=== PATIENT | male | born 1970 | race Caucasian/White ===

== ENCOUNTER 2017-03-27 13:51 | Emergency (ER) | payer OTHER ==
[~2017-03-27] VITALS: Ht 175.3 cm; Wt 68.0 kg
--- NOTE | ~2017-03-27 | EKG ---
PATIENT: JOSEFINA MOREL UNIT #: [id number] Ventricular Rate: 100 BPM Atrial Rate: 100 BPM P-R Interval: 130 ms QRS Duration: 74 ms Q-T Interval: 342 ms QTC Calculation(Bezet): 441 ms P Grants: 77 degrees Calculated R Grants: 91 degrees Calculated T Grants: 71 degrees Diagnosis Line: Normal sinus rhythm Diagnosis Line: Rightward axis Diagnosis Line: Otherwise normal ECG Diagnosis Line: No previous ECGs available Diagnosis Line: Confirmed by EROS YOON MD ([id number]) on 03/28/2017 Diagnosis Line: 7:34:45 PM INTERPRETING MD: CAR MICHAUD
--- NOTE | ~2017-03-27 | CR72 ---
[facility]. [facility] A Service of [facility] RADIOLOGY TEXT RESULTS PATIENT: JOSEFINA MOREL LOCATION: SED : 70 UNIT #: [id number] AGE: [address]: Ancelmo Henderson MD SEX: M ORDER DR: [id number] [place] [id number] E MR#: [id number] Acc #: [id number] NAME: JOSEFINA MOREL : 1970 SEX: M STUDY DATE/TIME: 03/27/2017 15:03 UNIT: SED ROOM: STUDY DESCRIPTION: CR Chest Single View Portable Attending Physician: Ancelmo Henderson M.D. Ordering Physician: Ancelmo Henderson M.D. Primary Care Physician: No Primary Care Physician MEDICAL IMAGING REPORT This report is preliminary unless electronic signature is present. EXAM Portable chest HISTORY Shortness of breath, cough and congestion for the past 2-3 months recently worsening. TECHNIQUE Single AP view of the chest was obtained. FINDINGS A single AP portable view of the chest shows both lungs to be clear. The heart is normal in size. The mediastinal contour is normal. No significant bone abnormalities are seen. IMPRESSION Normal portable chest. Dictated by... Chris Camacho M.D. THIS IS AN ELECTRONICALLY VERIFIED REPORT Chris Camacho M.D. at 03/30/2017 7:03 AM MARCEL/jae TD: 03/28/2017 03:54 JOB #: [id number] MEDICAL IMAGING REPORT Page 1 of 1
[2017-03-27 15:05] LABS: BASOPHIL# 0.1 X10e3 (0-0.3); BASOPHIL% 0.6 % (0-2.5); EOSINOPHIL% 0.5 % (0.0-7.0); HEMATOCRIT 49.9 % (38.0-50.0); HEMOGLOBIN 17.1 gm/dL (13.0-16.0); LYMPHOCYTE# 2.2 X10e3 (1.0-3.5); LYMPHOCYTE% 21.1 % (17.0-45.0); MEAN CELL VOLUME 92.9 FL (83-96); MEAN CORPUSCULAR HEMOGLOBIN 31.9 PG (28-34); MEAN CORPUSCULAR HGB CONC 34.4 g/dL (30-36); MEAN PLATELET VOLUME 7.5 FL (6.5-11.5); MONOCYTE# 0.6 X10e3 (0-1.0); MONOCYTE% 5.7 % (3.0-12.0); NEUTROPHIL# 7.4 X10e3 (1.5-7.1); NEUTROPHIL% 72.1 % (40-75); PLATELET COUNT 219 X10e3 (140-420); RED BLOOD COUNT 5.37 X10e (3.90-5.60); RED CELL DISTRIBUTION WIDTH 13.9 % (11.0-15.5); WHITE BLOOD COUNT 10.2 X10e3 (4.0-10.5)
[2017-03-27 15:05] LABS: POC - CKMB <1.0 ng/mL (0.0-7.9); POC - MYOGLOBIN 62.6 ng/mL (0.0-169.0)
[2017-03-27 15:06] LABS: POC - TROPONIN <0.05 ng/mL (<=0.05)
[2017-03-27 15:08] LABS: DIFF IND NO
[2017-03-27 15:23] LABS: ALBUMIN SERUM 3.9 g/dL (3.5-5.0); BILIRUBIN, DIRECT 0.1 mg/dL (0.0-0.2); BILIRUBIN,INDIRECT 0.2 mg/dL (0.0-0.9); BILIRUBIN,TOTAL 0.3 mg/dL (0.2-2.0); CALCIUM SERUM 8.5 mg/dL (8.4-10.2); CREATININE SERUM 0.9 mg/dL (0.6-1.4); GLOM FILT RATE Estimated 102.1 mL/min (>60); PROTEIN TOTAL SERUM 6.6 g/dL (6.0-8.3)
[2017-03-27 16:17] LABS: POC - CKMB <1.0 ng/mL (0.0-7.9); POC - MYOGLOBIN 41.2 ng/mL (0.0-169.0); POC - TROPONIN <0.05 ng/mL (<=0.05)
== END 2017-03-27 16:55 | disposition home or self-care (01) ==
LOC: SED 13:51
PROVIDERS: Emergency Medicine
DX: J20.9 Acute bronchitis, unspecified (principal); F17.200 Nicotine dependence, unspecified, uncomplicated
CPT/HCPCS: 36415; 71010; 80048; 80076; 82553; 83874; 84484; 85025; 93005; 94640; 96361; 96365; 96375; 99285; J0696; J1885; J2405